=== PATIENT | male | born 1965 | race Caucasian/White ===

== ENCOUNTER 2018-10-11 12:56 | Outpatient (CLI) | payer OTHER ==
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
== END 2018-10-11 12:57 | disposition home or self-care (01) ==
LOC: NAV RAD 12:56
PROVIDERS: ATTEND Internal Medicine
DX: M23.91 Unspecified internal derangement of right knee (principal); M17.11 Unilateral primary osteoarthritis, right knee